=== PATIENT | male | born 1945 | race Caucasian/White ===

== ENCOUNTER → 2020-08-27 11:55 | Outpatient (BNVA) | payer MEDICARE, OTHER, SELFPAY | PROVIDERS: Visit Provider Specialist | DX: R53.1 Weakness (principal); R20.0 Anesthesia of skin; G81.91 Hemiplegia, unspecified affecting right dominant side; M48.02 Spinal stenosis, cervical region; Z98.1 Arthrodesis status; G31.84 Mild cognitive impairment of uncertain or unknown etiology; E11.40 Type 2 diabetes mellitus with diabetic neuropathy, unspecified; Z87.891 Personal history of nicotine dependence | CPT/HCPCS: 99205 ==

== ENCOUNTER 2020-09-14 12:20 | Outpatient (CLI) | payer MEDICARE, OTHER, SELFPAY ==
--- NOTE | 2020-09-14 12:45 | MR_ITS ---
WS: [id number] MRI CERVICAL SPINE NONCONTRAST TECHNIQUE: Sagittal T1, T2 and STIR imaging. Axial T2, gradient, and fiesta imaging. CLINICAL INFORMATION: WEAKNESS COMPARISON: None. FINDINGS: Straightening of the normal cervical lordosis. No high-grade central canal stenosis. Cord signal is n ormal. Mild disc bulging C3-4. C2-C3: Normal. C3-C4: Disc osteophyte complex with endplate ridging. Moderate left and no significant right foramina l narrowing. Mild facet arthropathy. C4-C5: Mild osteophytic ridging. Mild facet arthropathy. Mild left and no significant right foraminal narrowing. Mild facet arthropathy. C5-C6: Mild disc bulging with slight effacement of the ventral thecal sac. Mild central canal stenosi s. Mild to moderate bilateral bony foraminal narrowing. Mild facet arthropathy. C6-C7: Disc osteophyte complex with endplate ridging. Moderate left and mild right bony foraminal nikki rowing. Mild facet arthropathy. C7-T1: Mild left and no significant right foraminal narrowing. Spinal canal is patent. Visualized brain stem structures: Normal. Prevertebral soft tissues: Normal. MR/MR cervical spin wo con* [id number] IMPRESSION: 1. Straightening of the normal cervical lordosis. No high-grade central canal narrowing. Cord signal is normal. 2. Disc osteophyte complex C3-C4 with slight effacement of the ventral thecal sac. Moderate left foraminal narrowing. 3. Mild central canal stenosis C5-C6 due to disc osteophyte complex. Mild to m oderate bilateral C5-6 bony foraminal narrowing. 4. Otherwise mild bony foraminal narrowing described above.
--- NOTE | 2020-09-14 12:45 | MR_ITS ---
WS: [id number] MRA HEAD TECHNIQUE: Axial 3-D TOF images obtained with axial images and axial, sagittal, and coronal 2-D refor matted images. CLINICAL INFORMATION: TIA COMPARISON: None. FINDINGS: Dominant distal left vertebral artery. Basilar artery is patent. Normal vascularity to the [employer] territ ory bilaterally. Persistent right [employer]. Both ICAs are patent at the skull base. Normal vascularity to the DUTCH and MCA territories bilaterally . No evidence of high-grade proximal stenosis or aneurysm. MR/MR angio head wo con [id number] IMPRESSION: Unremarkable intracranial MRA.
--- NOTE | 2020-09-14 12:45 | MR_ITS ---
WS: [id number] MRI HEAD WITHOUT CONTRAST TECHNIQUE: Sagittal T1, T2 axial, T2 axial FLAIR, axial and coronal T1 images, axial susceptibility w eighted imaging, axial diffusion weighted images, and coronal T2 images were obtained. CLINICAL INFORMATION: TIA COMPARISON: Outside examination FINDINGS: No evidence of restricted diffusion to suggest acute ischemia. Ventricular system and basal cisterns are patent. Mild small vessel changes. Moderate parenchymal volume loss. Normal posterior fossa. Norm al vascular flow voids at the skull base. No extra-axial fluid collections. No evidence of mass or ma ss effect. Paranasal sinuses and mastoid air cells are well aerated. No hemosiderin on the susceptibility weighted images. Mild symmetric atrophy involving the temporal l obes and hippocampal formations. Normal optic chiasm and pituitary infundibulum. MR/MR head wo con* [id number] IMPRESSION: 1. No evidence of restricted diffusion to suggest acute ischemia. 2. Mild small vessel changes with moderate parenchymal volume loss. 3. No extra-axial fluid collections. No evidence of mass or mass effect. 4. No hemosiderin on the susceptibility weighted images. 5. Mild symmetric atrophy involving the temporal lobes and hippocampal formati ons.
== END 2020-09-14 12:21 | disposition home or self-care (01) ==
PROVIDERS: PCP Family Medicine; Visit Provider Specialist
DX: G45.9 Transient cerebral ischemic attack, unspecified (principal); R53.1 Weakness; G31.9 Degenerative disease of nervous system, unspecified; M48.02 Spinal stenosis, cervical region; M25.78 Osteophyte, vertebrae
CPT/HCPCS: 70544; 70551; 72141

== ENCOUNTER → 2020-09-22 10:40 | Outpatient (BNVA) | payer MEDICARE, OTHER, SELFPAY | PROVIDERS: PCP Family Medicine; Visit Provider Specialist | DX: G20 Parkinson's disease (principal); G81.91 Hemiplegia, unspecified affecting right dominant side; G31.84 Mild cognitive impairment of uncertain or unknown etiology; Z87.891 Personal history of nicotine dependence | CPT/HCPCS: 99215 ==

== ENCOUNTER → 2020-10-26 12:12 | Outpatient (BNVA) | payer MEDICARE, OTHER, SELFPAY | PROVIDERS: PCP Family Medicine; Visit Provider Specialist | DX: G20 Parkinson's disease (principal); G31.84 Mild cognitive impairment of uncertain or unknown etiology; G81.91 Hemiplegia, unspecified affecting right dominant side; Z87.891 Personal history of nicotine dependence | CPT/HCPCS: 96116; 99214 ==

== ENCOUNTER → 2020-12-29 12:32 | Outpatient (BNVA) | payer MEDICARE, OTHER, SELFPAY | PROVIDERS: PCP Family Medicine; Visit Provider Specialist | DX: G20 Parkinson's disease (principal); G31.84 Mild cognitive impairment of uncertain or unknown etiology; G81.91 Hemiplegia, unspecified affecting right dominant side; G31.85 Corticobasal degeneration; Z87.891 Personal history of nicotine dependence | CPT/HCPCS: 99215 ==

== ENCOUNTER → 2023-05-23 11:39 | Outpatient (BNVA) | payer OTHER, SELFPAY | PROVIDERS: Visit Provider Specialist | DX: R29.90 Unspecified symptoms and signs involving the nervous system (principal); G31.85 Corticobasal degeneration; G81.91 Hemiplegia, unspecified affecting right dominant side; G20.C Parkinsonism, unspecified | CPT/HCPCS: 99215 ==

== ENCOUNTER → 2023-08-24 12:22 | Outpatient (BNVA) | payer OTHER, SELFPAY | PROVIDERS: Visit Provider Specialist | DX: G31.85 Corticobasal degeneration (principal); Z99.3 Dependence on wheelchair | CPT/HCPCS: 64644; 99213; J0585 ==

== ENCOUNTER → 2023-12-07 10:25 | Outpatient (BNVA) | payer OTHER, SELFPAY | PROVIDERS: Visit Provider Specialist | DX: G24.9 Dystonia, unspecified (principal); G31.85 Corticobasal degeneration | CPT/HCPCS: 64642; 64643; 99213; 99214; J0585 ==